=== PATIENT | female | born 2005 | race African-American/Black ===

== ENCOUNTER 2024-03-21 19:13 | Emergency (ER) | payer MEDICAID ==
[~2024-03-21] VITALS: Ht 162.6 cm; Wt 52.0 kg
[2024-03-21 19:40] VITALS: O2SAT 100
[2024-03-21] MEDS: PREDNISONE 20MG TABLET PO ONE (20:00)
[2024-03-21] MEDS: DIPHENHYDRAMINE 50MG/ML VIAL IM ONE (20:00)
[2024-03-21] MEDS: FAMOTIDINE 20MG TABLET PO ONE (20:00)
[2024-03-21] MEDS ORDERED: FAMO40TA7 MT (21:12)
[2024-03-21] MEDS ORDERED: DIPH25CA83 MT (21:12)
[2024-03-21] MEDS ORDERED: P20 MT (21:13)
[2024-03-21 21:36] VITALS: BP 114/72; PULSE 72; RESP 17; TEMP 98.3
== END 2024-03-21 21:39 | disposition home or self-care (01) ==
LOC: ER 19:13
DX: T78.40XA Allergy, unspecified, initial encounter (principal); L70.9 Acne, unspecified; X58.XXXA Exposure to other specified factors, initial encounter; K13.0 Diseases of lips
CPT/HCPCS: 99283; 96372; J7512; J1200

== ENCOUNTER 2025-03-23 09:31 | Emergency (ER) | payer BC, MEDICAID ==
[~2025-03-23] VITALS: Ht 157.5 cm; Wt 51.0 kg
[~2025-03-23 09:31] MED LIST: DIPH25CA83 MT; FAMO40TA7 MT; P20 MT
[2025-03-23 09:41] VITALS: BP 111/69; TEMP 37; O2SAT 100
[2025-03-23 09:42] VITALS: PULSE 69; RESP 18; O2SAT 100
[2025-03-23] MEDS ORDERED: HYDR28CR97 TP (11:45)
[2025-03-23] MEDS ORDERED: VALA100044 MT (11:45)
== END 2025-03-23 11:52 | disposition home or self-care (01) ==
LOC: ER 09:31
DX: B00.89 Other herpesviral infection (principal); R59.1 Generalized enlarged lymph nodes; Z79.624 Long term (current) use of inhibitors of nucleotide synthesis; Z79.899 Other long term (current) drug therapy
CPT/HCPCS: 99283; Z7610; A4606